=== PATIENT | female | born 1970 | race Hispanic/Latino ===

== ENCOUNTER 2020-03-17 09:00 | Outpatient (AMBR) | payer OTHER, SELFPAY ==
--- NOTE | 2020-03-01 08:58 | PTNOTE_ITS ---
PT OP Initial Eval Patient Information Visit Reasons: post op left shoulder Medical Diagnosis: S42.209A Treatment Dx #1: post op L shoulder proximal humerus ORIF Start of Care: 03/01/20 Date of Onset: 02/03/20 Initial Assessment Subjective Pt is 49 yr old female s/p L shoulder proximal humerus ORIF to repair impacted diaphysis FX from falling at home. Pt attributes Hx of falling to neuropathy and very painful nerve pain in B feet. She is better able to move and lift the L shoulder now to do her hair. Pain level today in the shoulder is low as she is taking pain meds. She lives with boyfriend who helps her at home. PMH: DM with neuropathy Imaging: in EMR, reviewed Pt goal: to be able to reach up and get full mobility in the arm Objective L shoulder AROM: FF 90 deg Abd 85 deg ER: 55 deg HBB: to L5 slowly Strength: NT but estimated to be 3/5 within available ROM Incision scar: no drainage, healing Assessment Pt presentation consistent with referring Dx with decreased shoulder ROM, strength and function with HH chores. Pt has myofascial restrictions into all planes of motion. Pt requires skilled therapy in order to improve ROM, strength and function and she has fair/good rehab potential. Short Term and Flexographic Press Set Up Operator Goals 1. Ind with HEP 2. Improved PROM/AROM to 155 deg FF, 145 deg abduction, ER to 80 deg 3. Improved strength grossly in all planes of motion to 4/5 4. Pt will reach OH to tall cabinets x10 Treatment Plan 1. Manual therapy 2. Therex 3. Modalities as indicated, moist heat, ice, estim Frequency and Duration 2x a week for 8 weeks Certification Dates: 03/01/20 to 05/31/20 Office Procedures PT Procedures PT Date of Service: 03/01/20 OP PT Eval Mod Complex 30 minutes: Yes
--- NOTE | 2020-03-07 10:58 | PT.ODAYNRPT ---
PT Outpatient Daily Note Date of Service: March 07, 2020 OP Daily Note Visit Reasons: post op left shoulder Outpatient Physical Therapy Treatment Date: 03/07/20 Subjective: Feels like there's something moving in the shoulder when I move my hand up Objective: See F/S for therex MT; PPM into FF, abduction and Erot x5' wot end-range Gr 4- Assessment: Good improvement with PROM and AAROM since evaluation with low tissue irritability today. Pt has sufficient external rotation to do hair care. Plan: Improve shoulder ROM Length of Time (minutes) of Treatment: 30 Minutes Office Procedures PT Procedures PT Date of Service: 03/01/20 OP PT Eval Mod Complex 30 minutes: Yes PT Procedures PT Date of Service: 03/07/20 Therapeutic Exercise 30 minutes: Yes
--- NOTE | 2020-03-10 08:45 | PT.ODAYNRPT ---
PT Outpatient Daily Note Date of Service: March 10, 2020 OP Daily Note Visit Reasons: post op left shoulder Outpatient Physical Therapy Treatment Date: 03/10/20 Subjective: My shoulder was sore after last visit Objective: See F/S for therex MHP during wand therex Assessment: Good improvement with PROM and AAROM since evaluation with low tissue irritability today. Pt has sufficient external rotation to do hair care. Plan: Improve shoulder ROM Length of Time (minutes) of Treatment: 30 Minutes Office Procedures PT Procedures PT Date of Service: 03/01/20 OP PT Eval Mod Complex 30 minutes: Yes PT Procedures PT Date of Service: 03/10/20 Therapeutic Exercise 30 minutes: Yes PT Procedures PT Date of Service: 03/07/20 Therapeutic Exercise 30 minutes: Yes
--- NOTE | 2020-03-14 18:04 | PT.ODAYNRPT ---
PT Outpatient Daily Note Date of Service: March 14, 2020 OP Daily Note Visit Reasons: post op left shoulder Outpatient Physical Therapy Treatment Date: 03/14/20 Subjective: My shoulder was less sore after last visit Objective: See F/S for therex MHP during wand therex MT: PPM into FF, abd and Erot x5' to end-range Gr 4- Assessment: Good improvement with PROM and AAROM since evaluation with low tissue irritability today. Pt has sufficient external rotation to do hair care. Plan: Improve shoulder ROM Length of Time (minutes) of Treatment: 30 Minutes Office Procedures PT Procedures PT Date of Service: 03/01/20 OP PT Eval Mod Complex 30 minutes: Yes PT Procedures PT Date of Service: 03/10/20 Therapeutic Exercise 30 minutes: Yes PT Procedures PT Date of Service: 03/14/20 Therapeutic Exercise 30 minutes: Yes PT Procedures PT Date of Service: 03/07/20 Therapeutic Exercise 30 minutes: Yes
--- NOTE | 2020-03-17 17:50 | PT.ODS1RPT ---
PT OP Progress/Discharge Note Date of Service: March 17, 2020 Progress Note/DC Note Progress Note/Discharge Note: DC Note Patient Information Visit Reasons: post op left shoulder Medical Diagnosis: Left displaced 2 part proximal humerus fracture Treatment Dx #1: post op L shoulder proximal humerus ORIF Service Continue Service or Discharge: Discharge Discharge Date: 03/17/20 Certification Date Certification Dates: 03/01/20 to 05/31/20 Status Subjective: Pt reports she is losing her job and insurance benefits on 03/20 and this will be her last visit. Objective: See F/S for therex L shoulder AROM: in supine FF: 155 deg Abd: 145 deg Erot: 80deg Strength: 3/5 in all planes of motion Assessment: Pt has attended the evaluation and 4 Rx visits with Good improvement with PROM and AROM since evaluation with low tissue irritability today. Pt has sufficient external rotation to do hair care. Pt has met AROM goals in supine with standing lagging a little behind that and can reach OH in supine. Pt was given HEP of light strengthening and a theraband for when her shoulder doesn't hurt and she transitions to strengthening at home. Plan: Improve shoulder ROM Goals Achieved: 1. Ind with HEP 2. Improved PROM/AROM to 155 deg FF, 145 deg abduction, ER to 80 deg 3. Pt will reach OH to tall cabinets x10 Office Procedures PT Procedures PT Date of Service: 03/01/20 OP PT Eval Mod Complex 30 minutes: Yes PT Procedures PT Date of Service: 03/10/20 Therapeutic Exercise 30 minutes: Yes PT Procedures PT Date of Service: 03/14/20 Therapeutic Exercise 30 minutes: Yes PT Procedures PT Date of Service: 03/17/20 Therapeutic Exercise 30 minutes: Yes PT Procedures PT Date of Service: 03/07/20 Therapeutic Exercise 30 minutes: Yes
== END 2020-03-24 23:59 | disposition home or self-care (01) ==
PROVIDERS: PCP Internal Medicine; Referring Provider Internal Medicine; Visit Provider Orthopaedic Surgery
DX: S42.202D Unspecified fracture of upper end of left humerus, subsequent encounter for fracture with routine healing (principal); M25.512 Pain in left shoulder; E11.40 Type 2 diabetes mellitus with diabetic neuropathy, unspecified; W19.XXXD Unspecified fall, subsequent encounter
CPT/HCPCS: 97110; 97162